=== PATIENT | male | born 1945 | race Caucasian/White ===

== ENCOUNTER → 2019-05-29 | Outpatient (CLI) | payer OTHER, MEDICARE ==
--- NOTE | 2019-05-29 09:41 | Diagnostic Imaging Report ---
INDICATION: Injury with pain. FINDINGS: Spondylosis most severe at the L2-L3 level where there is mild grade 1 retrolisthesis. Vertebral statures are within normal limits. There is hypertrophic mid to lower lumbar facet arthrosis. An acute abnormality is not apparent. IMPRESSION: Grade 1 retrolisthesis L2 on L3, multilevel spondylosis and advanced lower lumbar facet arthrosis. Dictated by: Dictated on workstation # [id number]
--- NOTE | 2019-05-29 09:44 | Diagnostic Imaging Report ---
Indication: Low back pain and injury. Time of exam 9:30 AM 3 views of the sacroiliac joints was performed. The sacroiliac joints are unremarkable. No definite ankylosis, osseous erosion or sclerosis is seen. Sacral ala appear unremarkable. Impression: No acute abnormality is detected. Dictated by: Dictated on workstation # [id number]
== END ==
LOC: RAD 09:10
PROVIDERS: ATTEND Nurse Practitioner Family
DX: S39.92XA Unspecified injury of lower back, initial encounter (principal); M43.16 Spondylolisthesis, lumbar region; M47.816 Spondylosis without myelopathy or radiculopathy, lumbar region
CPT/HCPCS: 72100; 72202

== ENCOUNTER → 2019-08-14 | Outpatient (CLI) | payer OTHER, MEDICARE ==
--- NOTE | 2019-08-14 13:48 | Diagnostic Imaging Report ---
INDICATION: Hip pain. TECHNIQUE: Two views of the left hip were obtained. FINDINGS: The alignment is normal. There is no fracture or dislocation. The soft tissues are unremarkable. IMPRESSION: No focal abnormality in the left hip. Dictated by: Dictated on workstation # [id number]
== END ==
LOC: RAD 11:19
PROVIDERS: ATTEND Family Medicine
DX: M25.552 Pain in left hip (principal)
CPT/HCPCS: 73502

== ENCOUNTER → 2021-10-15 | Outpatient (CLI) | payer OTHER, MEDICARE ==
[~2021-10-15] VITALS: Ht 180 cm; Wt 86.4 kg
[~2021-10-15] MED LIST: ACETAMINOPHEN 500 MG TAB (TYLENOL) PO PRN; EPINEPHrine INJECTION 1 MG/ML AMP IM PRN; ONDANSETRON 4 MG/2 ML (SDV) Z0FRAN IV PRN; SOTROVIMAB 500 MG/NS 50 ML IVPB IV ONE; diphenhydrAMINE 50 MG/ML INJ (BENADRYL) IV PRN
[2021-10-15 08:10] VITALS: BP 122/69
[2021-10-15 10:00] VITALS: BP 123/54
== END ==
LOC: INFUSION 07:51
PROVIDERS: ATTEND Nurse Practitioner Family
DX: U07.1 COVID-19 (principal)